=== PATIENT | female | born 1990 | race Caucasian/White ===

== ENCOUNTER 2018-11-02 08:57 | Emergency (ER) | payer BC ==
[2018-11-02] MEDS ORDERED: predniSONE TAB* 20 MG PO ONE (10:41)
--- NOTE | 2018-11-02 10:43 | ED ---
Skin Complaint - HPI Summary HPI Summary: 28 year old female presents with allergic reaction today. States she doesn't know which she was exposed to. She developed a rash across her face and her arms. She states that it has since resolved. a couple days ago states that she had a similar rash that resolved with benadryl. No recent antibiotics. Has not been outside much. Has no medical conditions. Denies any chest pain shortness breath. No abdominal pain. No nausea vomiting. - History of Current Complaint Chief Complaint: EDAllergicReaction Time Seen by Provider: 11/02/18 10:27 Stated Complaint: ALLERGIC REACTION PER PT Pain Intensity: 0 - Allergy/Home Medications Allergies/Adverse Reactions: Allergies Allergy/AdvReac Type Severity Reaction Status Date / Time No Known Allergies Allergy Verified 11/02/18 09:02 PMH/Surg Hx/FS Hx/Imm Hx Endocrine/Hematology History: Denies: Hx Anticoagulant Therapy Respiratory History: Denies: Hx Asthma Infectious Disease History: No Infectious Disease History: Denies: Traveled Outside the [place] in Last 30 Days - Family History Known Family History: Positive: Non-Contributory - Social History Substance Use Type: Reports: None Smoking Status (MU): Never Smoked Tobacco Review of Systems Negative: Fever Negative: Chest Pain Negative: Shortness Of Breath Positive: Rash All Other Systems Reviewed And Are Negative: Yes Physical Exam Triage Information Reviewed: Yes Vital Signs On Initial Exam: Initial Vitals Temp Pulse Resp BP Pulse Ox 97.9 F 86 18 146/95 98 11/02/18 08:58 11/02/18 08:58 11/02/18 08:58 11/02/18 08:58 11/02/18 08:58 Vital Signs Reviewed: Yes Appearance: Positive: Well-Appearing Skin: Positive: Warm, Dry Head/Face: Positive: Normal Head/Face Inspection Eyes: Positive: Normal, EOMI, JANEL, Conjunctiva Clear ENT: Positive: Normal ENT inspection, Pharynx normal, TMs normal Respiratory/Lung Sounds: Positive: Clear to Auscultation, Breath Sounds Present Cardiovascular: Positive: Normal, RRR Abdomen Description: Positive: Nontender, Soft Bowel Sounds: Positive: Present Musculoskeletal: Positive: Normal Neurological: Positive: Normal Psychiatric: Positive: Normal Diagnostics - Vital Signs Vital Signs Temp Pulse Resp BP Pulse Ox 11/02/18 08:58 97.9 F 86 18 146/95 98 - Laboratory Lab Statement: Any lab studies that have been ordered have been reviewed, and results considered in the medical decision making process. Course/Dx - Course Course Of Treatment: 28 year old female presents with allergic reaction today. States she doesn't know which she was exposed to. She developed a rash across her face and her arms. She states that it has since resolved. a couple days ago states that she had a similar rash that resolved with benadryl. No recent antibiotics. Has not been outside much. Has no medical conditions. Denies any chest pain shortness breath. No abdominal pain. No nausea vomiting. On exam has faint rash. Lungs are clear to auscultation. Pharynx normal. We'll place a short course of steroids due to recurring rash. Told to take Benadryl as needed for the rash. Patient understands agrees with plan. - Differential Diagnoses - Skin Complaint Differential Diagnoses: Abscess, Cellulitis, Contact Dermatitis - Diagnoses Provider Diagnoses: Rash Discharge - Sign-Out/Discharge Documenting (check all that apply): Patient Departure Patient Received Moderate/Deep Sedation with Procedure: No - Discharge Plan Condition: Good Disposition: HOME Prescriptions: predniSONE [Prednisone 20 MG TAB] 20 mg PO DAILY #4 tablet Patient Education Materials: Acute Rash (ED) Referrals: Arlene Houser MD [Primary Care Provider] - Additional Instructions: Take Benadryl every 6 hours as needed for rash Take steroid once a day for 4 days starting tomorrow Return to ED if shortness of breath, chest pain, or if develop any new or worsening symptoms - Billing Disposition and Condition Condition: GOOD Disposition: Home - Attestation Statements Provider Attestation: I was available for consult. This patient was seen by the RENAY. The patient was not presented to, seen by, or examined by me. -Brennan
[2018-11-02 11:04] VITALS: BP 122/76
== END 2018-11-02 11:03 | disposition home or self-care (01) ==
LOC: ED 08:57
DX: R21 Rash and other nonspecific skin eruption (principal)
CPT/HCPCS: 99282; J7512